=== PATIENT | female | born 1955 | race Caucasian/White ===

== ENCOUNTER → 2016-11-30 | Outpatient (CLI) | payer OTHER | LOC: FIMAGING 07:51 | PROVIDERS: ATTEND Orthopaedic Surgery | DX: S83.241A Other tear of medial meniscus, current injury, right knee, initial encounter (principal); M22.41 Chondromalacia patellae, right knee; M71.21 Synovial cyst of popliteal space [Baker], right knee; M25.561 Pain in right knee; X58.XXXA Exposure to other specified factors, initial encounter ==

== ENCOUNTER 2017-09-11 21:37 | Emergency (ER) | payer OTHER ==
[2017-09-11] MEDS ORDERED: NS 1,000 ML IV ONE (22:01)
--- NOTE | 2017-09-11 22:01 | EDPHY ---
H & P Stated Complaint: c/o cough/sob x 5 days, seen by pcp given abx/steroid, sx not improving Time Seen by Provider: 09/11/17 21:55 HPI/ROS: HPI CHIEF COMPLAINT: Cough, shortness of breath HISTORY OF PRESENT ILLNESS: Patient very pleasant 62-year-old female she has a history of hypertension, hyperlipidemia she presents emergency room with shortness of breath and cough. She describes a cough productive white sputum in nature. No blood. Denies pleuritic pain. Denies fever. Denies chest pain. Does endorse chest tightness. Denies nausea vomiting or diarrhea. Includes generalized weakness. No subjective fever at home. States she had a flu shot. This been sick since . 4 days. Saw primary care doctor put on albuterol inhaler, prednisone, azithromycin. Past Medical History: Hypertension, hyperlipidemia Past Surgical History: No recent surgery Social History: Denies drugs alcohol tobacco products Family History:Noncontributory ROS REVIEW OF SYSTEMS: A comprehensive 10 point review of systems is otherwise negative aside from elements mentioned in the history of present illness. Exam Constitutional triage nursing summary reviewed, vital signs reviewed, awake/ alert. Eyes normal conjunctivae and sclera, EOMI, PERRLA. HENT normal inspection, atraumatic, moist mucus membranes, no epistaxis, neck supple/ no meningismus, no raccoon eyes. Respiratory diffuse wheezing bilaterally. Cardiovascular rate normal, regular rhythm, no murmur, no edema, distal pulses normal. Gastrointestinal soft, non-tender, no rebound, no guarding, normal bowel sounds, no distension, no pulsatile mass. Genitourinary no CVA tenderness. Musculoskeletal no midline vertebral tenderness, full range of motion, no calf swelling, no tenderness of extremities, no meningismus, good pulses, neurovascularly intact. Skin pink, warm, & dry, no rash, skin atraumatic. Neurologic awake, alert and oriented x 3, AAOx3, moves all 4 extremities equally, motor intact, sensory intact, CN II-XII intact, normal cerebellar, normal vision, normal speech. Psychiatric normal mood/affect. Heme/Lymph/Immune no lymphadenopathy. Differential Diagnosis: Includes but is not limited to in a particular order viral syndrome, upper respiratory tract infection, viral pneumonia, bacterial pneumonia, pneumothorax, CHF, pulmonary embolism Medical Decision Making: Plan for this patient DuoNeb breathing treatment, IV fluids, IV Decadron, chest x-ray two view, EKG, troponin, D-dimer. Re-evaluate Re-evaluation: EKG interpretation by me on record in [employer] system. Impression time of EKG 2229, sinus rhythm rate of 81, left bundle-branch block present without acute ischemia. 2351: After re-evaluation at this time patient is feeling much better after DuoNeb breathing treatment x2. She is moving good air. Less wheezing. Pulse ox 94% on room air. She would like to be discharged home. I will prescribe her new albuterol inhaler, she is about done her prednisone taper however I will placed on 60 mg for the next 3-4 days. Additionally will extend out her azithromycin. Blood work has been reviewed she has a known left bundle branch block on her EKG which does not show any acute ischemic change. Additionally troponin negative, negative D-dimer, negative influenza. Chest x-ray consistent with bronchial airways disease. No infiltrate. I did discussed return precautions with her and her partner at bedside. They understand return emergency room if there is worsening shortness of breath, high fever, vomiting questions or concerns. 2354: Patient vigorously road test around emergency room with a pulse ox 93-94% . No significant hypoxia. She feels well would like to go home. Source: Patient - Medical/Surgical History Hx Asthma: No Hx Chronic Respiratory Disease: No Hx Diabetes: No Hx Cardiac Disease: Yes Hx Renal Disease: No Hx Cirrhosis: No Hx Alcoholism: No Hx HIV/AIDS: No Hx Splenectomy or Spleen Trauma: No Other PMH: hyperlipidemia, hypertension, gerd, L rotator cuff surg, hysterectomy , multi breast lump removed - Social History Smoking Status: Never smoked Constitutional: Initial Vital Signs Temperature (C) 36.6 C 09/11/17 21:51 Heart Rate 86 09/11/17 21:51 Respiratory Rate 18 09/11/17 21:51 Blood Pressure 158/92 H 09/11/17 21:51 O2 Sat (%) 90 L 09/11/17 21:51 O2 Delivery Mode Room Air Allergies/Adverse Reactions: No Known Allergies Allergy (Verified 09/11/17 21:55) Home Medications: Medication Instructions Recorded Atorvastatin Calcium [Lipitor 10 10 mg PO DAILY 10/21/12 mg (RX)] Albuterol 09/11/17 Albuterol [Proventil Inhaler HFA 1 - 2 puffs IH Q4H #1 mdi 09/11/17 (*)] Azithromycin 09/11/17 Azithromycin [Zithromax] 250 mg PO DAILY #6 tab 09/11/17 Losartan Potassium 09/11/17 Methylprednisolone 09/11/17 predniSONE 60 mg PO DAILY #9 tab 09/11/17 Medical Decision Making - Diagnostics Imaging Results: Imaging Impressions Chest X-Ray 09/11/17 22:02 Impression: 1. Mild bronchitis. 2. No focal pneumonia. 3. No pleural effusion or pneumothorax. - Data Points Laboratory Results: Laboratory Results 09/11/17 22:10 09/11/17 22:10 09/11/17 09/11/17 09/11/17 22:45 22:10 22:10 WBC RBC Hgb Hct MCV MCH MCHC RDW Plt Count MPV Neut % (Auto) Lymph % (Auto) [place] % (Auto) Eos % (Auto) Baso % (Auto) Nucleat RBC Rel Count Absolute Neuts (auto) Absolute Lymphs (auto) Absolute Monos (auto) Absolute Eos (auto) Absolute Basos (auto) Absolute Nucleated RBC Immature Gran % Immature Gran # PT INR APTT D-Dimer VBG Lactic Acid 1.5 mmol/L mmol/L (0.7-2.1) Sodium 138 mEq/L mEq/L (135-145) Potassium 3.9 mEq/L mEq/L (3.5-5.2) Chloride 102 mEq/L mEq/L (97-110) Carbon Dioxide 26 mEq/l mEq/l (22-31) Anion Gap 10 mEq/L mEq/L (8-16) BUN 24 mg/dL H mg/dL (7-23) Creatinine 1.0 mg/dL mg/dL (0.6-1.0) Estimated GFR 56 Glucose 114 mg/dL H mg/dL (70-100) Calcium 9.5 mg/dL mg/dL (8.5-10.4) Troponin I < 0.012 ng/mL ng/mL (0.000-0.034) NT-Pro-B Natriuret Pep 51 pg/mL pg/mL (0-125) Nasal Influenza A PCR NEGATIVE FOR FLU A (NEGATIVE) Nasal Influenza B PCR NEGATIVE FOR FLU B (NEGATIVE) 09/11/17 09/11/17 22:10 22:10 WBC 8.69 10^3/uL 10^3/uL (3.80-9.50) RBC 5.27 10^6/uL 10^6/uL (4.18-5.33) Hgb 14.8 g/dL g/dL (12.6-16.3) Hct 45.3 % % (38.0-47.0) MCV 86.0 fL fL (81.5-99.8) MCH 28.1 pg pg (27.9-34.1) MCHC 32.7 g/dL g/dL (32.4-36.7) RDW 13.0 % % (11.5-15.2) Plt Count 315 10^3/uL 10^3/uL (150-400) MPV 9.5 fL fL (8.7-11.7) Neut % (Auto) 65.4 % % (39.3-74.2) Lymph % (Auto) 21.4 % % (15.0-45.0) [place] % (Auto) 9.0 % % (4.5-13.0) Eos % (Auto) 3.2 % % (0.6-7.6) Baso % (Auto) 0.5 % % (0.3-1.7) Nucleat RBC Rel Count 0.0 % % (0.0-0.2) Absolute Neuts (auto) 5.69 10^3/uL 10^3/uL (1.70-6.50) Absolute Lymphs (auto) 1.86 10^3/uL 10^3/uL (1.00-3.00) Absolute Monos (auto) 0.78 10^3/uL 10^3/uL (0.30-0.80) Absolute Eos (auto) 0.28 10^3/uL 10^3/uL (0.03-0.40) Absolute Basos (auto) 0.04 10^3/uL 10^3/uL (0.02-0.10) Absolute Nucleated RBC 0.00 10^3/uL 10^3/uL (0-0.01) Immature Gran % 0.5 % % (0.0-1.1) Immature Gran # 0.04 10^3/uL 10^3/uL (0.00-0.10) PT 12.4 SEC SEC (12.0-15.0) INR 0.90 (0.83-1.16) APTT 23.5 SEC SEC (23.0-38.0) D-Dimer < 0.27 ug/mLFEU ug/mLFEU (0.00-0.50) VBG Lactic Acid Sodium Potassium Chloride Carbon Dioxide Anion Gap BUN Creatinine Estimated GFR Glucose Calcium Troponin I NT-Pro-B Natriuret Pep Nasal Influenza A PCR Nasal Influenza B PCR Medications Given: Discontinued Medications Albuterol/Ipratropium (Duoneb) 3 ml IH EDNOW ONE Stop: 09/11/17 22:06 Last Admin: 09/11/17 22:11 Dose: 3 ml Albuterol/Ipratropium (Duoneb) 3 ml IH EDNOW ONE Stop: 09/11/17 23:23 Last Admin: 09/11/17 23:23 Dose: 3 ml Dexamethasone (Decadron Injection) 10 mg IVP EDNOW ONE Stop: 09/11/17 22:19 Last Admin: 09/11/17 22:24 Dose: 10 mg Sodium Chloride (Ns) 1,000 mls @ 0 mls/hr IV EDNOW ONE; Wide Open PRN Reason: Protocol Stop: 09/11/17 22:02 Last Admin: 09/11/17 22:11 Dose: 1,000 mls Departure - Departure Disposition: Home, Routine, Self-Care Clinical Impression: Acute bronchitis Qualifiers: Bronchitis organism: other organism Qualified Code(s): J20.8 - Acute bronchitis due to other specified organisms Instructions: Acute Bronchitis (ED), Wheezing (ED) Additional Instructions: 1. Drink plenty of fluids. 2. Albuterol 2 puffs every 4 hr as needed. 3. Mucinex decongestant 4. Antibiotic as prescribed. 5. Return emergency room if you have worsening symptoms questions or concerns. Referrals: SIMON RESTREPO [Primary Care Provider] - As per Instructions Prescriptions: Albuterol [Proventil Inhaler HFA (*)] 1 - 2 puffs IH Q4H #1 mdi Azithromycin [Zithromax] 250 mg PO DAILY #6 tab predniSONE 60 mg PO DAILY #9 tab
[2017-09-11] MEDS ORDERED: IPRATROPIUM/ALBUTEROL 3 ML DEYVIAL IH ONE ×2 (22:05→23:22)
[2017-09-11] MEDS ORDERED: DEXAMETHASONE 10 MG/ML VIAL IVP ONE (22:18)
[2017-09-11 22:20] LABS: PLATELET COUNT 315 10^3/uL (150-400)
[2017-09-11 22:29] LABS: PROTIME(PATIENT) 12.4 SEC (12.0-15.0)
--- NOTE | 2017-09-11 22:32 | CPEKG ---
Heart Rate: 81 RR Interval: 741 P-R Interval: 152 QRSD Interval: 136 QT Interval: 424 QTC Interval: 493 P [place]: 39 QRS [place]: 14 T Wave [place]: 146 EKG Severity - ABNORMAL ECG - EKG Impression: SINUS RHYTHM EKG Impression: LEFT BUNDLE BRANCH BLOCK Electronically Signed By: Zach Torres 12-Sep-2017 06:47:17
[2017-09-11 23:40] VITALS: BP 142/76; TEMP 98.4
[2017-09-12 00:09] VITALS: PULSE 84; RESP 16; O2SAT 99
== END 2017-09-12 00:09 | disposition home or self-care (01) ==
DX: J20.9 Acute bronchitis, unspecified (principal); I10 Essential (primary) hypertension; E86.9 Volume depletion, unspecified
CPT/HCPCS: 96374; J1100

== ENCOUNTER 2018-07-07 18:32 | Emergency (ER) | payer OTHER ==
[2018-07-07] MEDS ORDERED: NS 1,000 ML IV ONE ×2 (19:12)
[2018-07-07] MEDS ORDERED: ONDANSETRON 4 MG/2 ML VIAL IVP ONE (19:12)
--- NOTE | 2018-07-07 19:15 | EDPHY ---
H & P Time Seen by Provider: 07/07/18 19:01 HPI/ROS: CHIEF COMPLAINT: Nausea and diarrhea HISTORY OF PRESENT ILLNESS: Patient was doing well until 9:00 a.m. Today. She presents after getting sick about an hour after her who was also a patient in the ER. They are worried the medic at night from food, possibly a pizza from [employer] last night, or or the sausage sandwich that she this morning at [employer] right before she got sick. Symptoms severe now, nausea which is worse with oral intake, multiple episodes of watery diarrhea without melena or bright red blood. Abdominal cramping but no severe pain. No fevers or chills and no urinary symptoms. REVIEW OF SYSTEMS: Eye: no change in vision ENT: no sore throat Cardiac: no chest pain or syncope, no dizziness or near fainting Pulmonary: no cough or SOB Abdomen: HPI Musculoskeletal: no back pain Skin: no rash Neuro: no headache Constitutional: no fever : no urinary symptoms A comprehensive 10 point review of systems is otherwise negative aside from elements mentioned in the history of present illness. PAST MEDICAL HISTORY: Includes hyperlipidemia and hypertension, GERD, rotator cuff surgery, hysterectomy. Social history: is here with similar symptoms in the ER General Appearance: Alert and conversant, cooperative. Eyes: No scleral icterus. ENT, Mouth: Dry mucous membranes. Respiratory: Normal respiratory effort, breath sounds equal, lungs are clear to auscultation. Cardiovascular: Regular rate and rhythm. Gastrointestinal: Abdomen is soft and non tender. No McBurney's point tenderness. No rebound or guarding. Neurological: Alert, face symmetric, normal motor and sensory in extremities. Skin: Warm and dry, no rashes. Musculoskeletal: No peripheral edema. Psychiatric: Not agitated. Emergency Department course/MDM: Likely viral or food related, benign abdominal exam. Initial heart rate noted to be 100. Consistent with dehydration Differential considered including but not limited to appendicitis, cholecystitis or pancreatitis, bowel obstruction, infectious diarrhea, food poisoning, colitis. Zofran 4 mg IV, normal saline 2 L IV, discharge if improved. 1950: Re-evaluated, improved ,results discussed. Feeling better would like to be discharged after IV fluids which I think is reasonable. 2135: no N/V, stable for DC. Smoking Status: Never smoked Constitutional: Initial Vital Signs Temperature (C) 36.7 C 07/07/18 18:36 Heart Rate 100 07/07/18 18:36 Respiratory Rate 18 07/07/18 18:36 Blood Pressure 128/93 H 07/07/18 18:36 O2 Sat (%) 97 07/07/18 18:36 O2 Delivery Mode Room Air Allergies/Adverse Reactions: No Known Allergies Allergy (Verified 09/11/17 21:55) Home Medications: Medication Instructions Recorded Lipitor 07/07/18 Losartan Potassium 07/07/18 Medical Decision Making - Data Points Laboratory Results: Laboratory Results 07/07/18 19:05 07/07/18 19:05 07/07/18 07/07/18 19:05 19:05 WBC 12.62 10^3/uL H 10^3/uL (3.80-9.50) RBC 5.06 10^6/uL 10^6/uL (4.18-5.33) Hgb 14.4 g/dL g/dL (12.6-16.3) Hct 44.1 % % (38.0-47.0) MCV 87.2 fL fL (81.5-99.8) MCH 28.5 pg pg (27.9-34.1) MCHC 32.7 g/dL g/dL (32.4-36.7) RDW 13.2 % % (11.5-15.2) Plt Count 358 10^3/uL 10^3/uL (150-400) MPV 9.4 fL fL (8.7-11.7) Neut % (Auto) 90.4 % H % (39.3-74.2) Lymph % (Auto) 4.0 % L % (15.0-45.0) [place] % (Auto) 4.3 % L % (4.5-13.0) Eos % (Auto) 0.6 % % (0.6-7.6) Baso % (Auto) 0.3 % % (0.3-1.7) Nucleat RBC Rel Count 0.0 % % (0.0-0.2) Absolute Neuts (auto) 11.41 10^3/uL H 10^3/uL (1.70-6.50) Absolute Lymphs (auto) 0.50 10^3/uL L 10^3/uL (1.00-3.00) Absolute Monos (auto) 0.54 10^3/uL 10^3/uL (0.30-0.80) Absolute Eos (auto) 0.08 10^3/uL 10^3/uL (0.03-0.40) Absolute Basos (auto) 0.04 10^3/uL 10^3/uL (0.02-0.10) Absolute Nucleated RBC 0.00 10^3/uL 10^3/uL (0-0.01) Immature Gran % 0.4 % % (0.0-1.1) Immature Gran # 0.05 10^3/uL 10^3/uL (0.00-0.10) RBC/WBC/PLT Morphology TNP Platelet Estimate TNP Sodium 136 mEq/L mEq/L (135-145) Potassium 3.8 mEq/L mEq/L (3.5-5.2) Chloride 107 mEq/L mEq/L (97-110) Carbon Dioxide 23 mEq/l mEq/l (22-31) Anion Gap 6 mEq/L mEq/L (6-14) BUN 18 mg/dL mg/dL (7-23) Creatinine 1.0 mg/dL mg/dL (0.6-1.0) Estimated GFR 56 Glucose 121 mg/dL H mg/dL (70-100) Calcium 9.4 mg/dL mg/dL (8.5-10.4) Medications Given: Discontinued Medications Sodium Chloride (Ns) 1,000 mls @ 0 mls/hr IV EDNOW ONE; Wide Open PRN Reason: Protocol Stop: 07/07/18 19:13 Last Admin: 07/07/18 19:16 Dose: 1,000 mls Sodium Chloride (Ns) 1,000 mls @ 0 mls/hr IV EDNOW ONE; Wide Open PRN Reason: Protocol Stop: 07/07/18 19:13 Last Admin: 07/07/18 19:16 Dose: 1,000 mls Ondansetron HCl (Zofran) 4 mg IVP EDNOW ONE Stop: 07/07/18 19:13 Last Admin: 07/07/18 19:17 Dose: 4 mg Departure - Departure Disposition: Home, Routine, Self-Care Clinical Impression: Dehydration Diarrhea Qualifiers: Diarrhea type: unspecified type Qualified Code(s): R19.7 - Diarrhea, unspecified Condition: Good Instructions: Acute Diarrhea (ED) Referrals: SIMON RESTREPO [Non Staff Provider (MD)] - As per Instructions
[2018-07-07] MEDS ORDERED: ONDANSETRON 4MG PREPACK#2 BTL TAKEHOME ONE (19:17)
[2018-07-07 19:21] LABS: PLATELET COUNT 358 10^3/uL (150-400)
[2018-07-07 20:57] VITALS: BP 148/78
== END 2018-07-07 20:56 | disposition home or self-care (01) ==
DX: R19.7 Diarrhea, unspecified (principal); R11.0 Nausea
CPT/HCPCS: 96374; J2405